=== PATIENT | male | born 1960 | race Caucasian/White ===

== ENCOUNTER 2017-09-04 08:46 | Emergency (ER) | payer BC ==
[~2017-09-04] VITALS: Ht 177.8 cm; Wt 108.9 kg
[~2017-09-04 08:46] MED LIST: IRBESARTAN; LEVO500T59 PO; METR500T PO; OMEP20TA63 PO; TEST2.5G5 TD
--- NOTE | 2017-09-04 09:07 | EKG ---
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
[2017-09-04] MEDS ORDERED: ONDANSETRON PF 4 MG/2 ML VIAL. IV ONE (09:30)
[2017-09-04 09:33] LABS: BASO % 0 % (0-3); EOS # 0.3 x10^3/uL (0.0-0.7); EOS % 5 % (0-3); HEMOGLOBIN 15.8 g/dL (13.0-17.5); LYMPH # 0.7 x10^3/uL (1.0-4.8); LYMPH % 12 % (24-48); MEAN CORPUSCULAR HEMOGLOBIN 29 pg (25-35); MEAN CORPUSCULAR HGB CONC 34 g/dL (31-37); MEAN CORPUSCULAR VOLUME 87 fL (79-100); MONO # 0.3 x10^3/uL (0.0-1.1); MONO % 6 % (0-9); NEUT # 4.3 x10^3uL (1.8-7.7); NEUT % 76 % (31-73); PLATELET COUNT 161 x10^3/uL (140-400); RED BLOOD COUNT 5.38 x10^6/uL (4.30-5.70); RED CELL DISTRIBUTION WIDTH 13.2 % (11.5-14.5); WHITE BLOOD COUNT 5.7 x10^3/uL (4.0-11.0)
--- NOTE | 2017-09-04 09:47 | RAD ---
EXAM: Chest, single view. HISTORY: Dizziness. COMPARISON: None. FINDINGS: A frontal view of the chest is obtained. There is no infiltrate, pleural effusion or pneumothorax. The heart is normal in size. There is a moderate hiatal hernia. IMPRESSION: No acute pulmonary finding. Electronically signed by: Elyse Stout MD (09/04/2017 9:44 AM) [facility]
[2017-09-04 09:56] LABS: ALBUMIN 4.1 g/dL (3.4-5.0); ALBUMIN/GLOBULIN RATIO 1.2 (1.0-1.7); CALCIUM 10.4 mg/dL (8.5-10.1); CREATININE 1.4 mg/dL (0.7-1.3); GFR 52.4; POTASSIUM 4.3 mmol/L (3.5-5.1); TOTAL BILIRUBIN 0.8 mg/dL (0.2-1.0); TOTAL PROTEIN 7.6 g/dL (6.4-8.2)
[2017-09-04 10:24] LABS: AMPHETAMINE/METHAMPHETAMINE NEG (NEG); BARBITURATES NEG (NEG); BENZODIAZEPINES NEG (NEG); CANNABINOIDS NEG (NEG); COCAINE NEG (NEG); METHADONE NEG (NEG); OPIATES NEG (NEG); PHENCYCLIDINE NEG (NEG)
[2017-09-04 10:25] LABS: BACTERIA,URINE FEW /HPF (0-FEW); BILIRUBIN,URINE NEG (NEG); CLARITY,URINE CLEAR; COLOR,URINE YELLOW; GLUCOSE,URINE NEG (NEG); NITRITE,URINE NEG (NEG); SQUAMOUS EPITHELIAL CELL,UR OCC /LPF; UROBILINOGEN,URINE 0.2 mg/dL (0.2 mg/dL)
[2017-09-04 10:26] LABS: HYALINE CASTS, URINE OCC /HPF
[2017-09-04] MEDS ORDERED: IV NORMAL SALINE 1,000ML 1,000 ML IV ONE (10:45)
--- NOTE | 2017-09-04 11:17 | RAD ---
Indication: Dizziness Technique: Noncontrast CT head was obtained. No comparison is available. One or more of the following individualized dose reduction techniques were utilized for this examination: 1. Automated exposure control 2. Adjustment of the mA and/or kV according to patient size 3. Use of iterative reconstruction technique Findings: The ventricles and sulci are within normal limits for age. There is no acute intracranial hemorrhage or extra-axial fluid collection. There is no mass effect or midline shift. Stanford-white differentiation is preserved. There are vascular calcifications. Right vertebral artery is dominant, there is tortuosity of the vertebrobasilar system. There is minimal ethmoid mucosal thickening. IMPRESSION: No acute intracranial findings. Electronically signed by: Chaz Nguyen MD (09/04/2017 9:43 AM) [facility] MTDD
--- NOTE | 2017-09-04 11:39 | PHYS DOC ---
Past History Past Medical History: GERD, Hypertension Past Surgical History: Cholecystectomy, Other Alcohol Use: None Drug Use: None Adult General Chief Complaint Chief Complaint: DIZZY/LIGHT HEADED HPI HPI 57-year-old male patient state he woke up at 5 AM and went to the bathroom without problem. Patient states he woke up at 6 AM and felt dizzy with mild shortness of breath without focal neuro deficit, headache, blurred vision, fever and chills, chest pain, nausea and vomiting. Patient's daughter checked his blood sugar that was 96 and his blood pressure was 150s without slurred speech. Patient states he waited for couple hours but didn't feel better and called his daughter to bring him to the hospital. Patient's daughter states he was diaphoretic without problem with his balance. 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 Review of Systems Review of Systems Constitutional: Denies fever or chills [] Eyes: Denies change in visual acuity, redness, or eye pain [] HENT: Denies nasal congestion or sore throat [] Respiratory: Denies cough or shortness of breath [] Cardiovascular: No additional information not addressed in HPI [] GI: Denies abdominal pain, nausea, vomiting, bloody stools or diarrhea [] : Denies dysuria or hematuria [] Musculoskeletal: Denies back pain or joint pain [] Integument: Denies rash or skin lesions [] Neurologic: Denies headache, focal weakness or sensory changes, reports dizziness [] Endocrine: Denies polyuria or polydipsia [] All other systems were reviewed and found to be within normal limits, except as documented in this note. Current Medications Current Medications Current Medications Medications (Trade) Dose Ordered Sig/Srinath Start Time Stop Time Status Last Admin Dose Admin Ondansetron HCl (Zofran) 4 mg 1X ONCE 09/04/17 09:30 09/04/17 09:31 DC 09/04/17 10:50 4 MG Sodium Chloride 1,000 ml @ 1,000 mls/hr 1X ONCE 09/04/17 10:45 09/04/17 11:44 09/04/17 10:55 1,000 MLS/HR Allergies Allergies Allergies Coded Allergies Type Severity Reaction Last Updated Verified No Known Drug Allergies 09/13/15 No Physical Exam Physical Exam Constitutional: Well developed, well nourished, no acute distress, non-toxic appearance. [] HENT: Normocephalic, atraumatic, bilateral external ears normal, oropharynx moist, no oral exudates, nose normal. [] Eyes: PERRLA, EOMI, conjunctiva normal, no discharge. [] Neck: Normal range of motion, no tenderness, supple, no stridor. [] Cardiovascular:Heart rate regular rhythm, no murmur [] Lungs & Thorax: Bilateral breath sounds clear to auscultation [] Abdomen: Bowel sounds normal, soft, no tenderness, no masses, no pulsatile masses. [] Skin: Warm, dry, no erythema, no rash. [] Back: No tenderness, no CVA tenderness. [] Extremities: No tenderness, no cyanosis, no clubbing, ROM intact, no edema. [] Neurologic: Alert and oriented X 3, normal motor function, normal sensory function, no focal deficits noted, NIH score of 0. [] Psychologic: Affect normal, judgement normal, mood normal. [] Current Patient Data Vital Signs Vital Signs Date Time Temp Pulse Resp B/P (MAP) Pulse Ox O2 Delivery O2 Flow Rate FiO2 09/04/17 09:30 98.6 69 18 96 Room Air Lab Results Laboratory Tests Test 09/04/17 09:22 09/04/17 10:00 White Blood Count 5.7 x10^3/uL (4.0-11.0) Red Blood Count 5.38 x10^6/uL (4.30-5.70) Hemoglobin 15.8 g/dL (13.0-17.5) Hematocrit 47.0 % (39.0-53.0) Mean Corpuscular Volume 87 fL (79-100) Mean Corpuscular Hemoglobin 29 pg (25-35) Mean Corpuscular Hemoglobin Concent 34 g/dL (31-37) Red Cell Distribution Width 13.2 % (11.5-14.5) Platelet Count 161 x10^3/uL (140-400) Neutrophils (%) (Auto) 76 % (31-73) H Lymphocytes (%) (Auto) 12 % (24-48) L Monocytes (%) (Auto) 6 % (0-9) Eosinophils (%) (Auto) 5 % (0-3) H Basophils (%) (Auto) 0 % (0-3) Neutrophils # (Auto) 4.3 x10^3uL (1.8-7.7) Lymphocytes # (Auto) 0.7 x10^3/uL (1.0-4.8) L Monocytes # (Auto) 0.3 x10^3/uL (0.0-1.1) Eosinophils # (Auto) 0.3 x10^3/uL (0.0-0.7) Basophils # (Auto) 0.0 x10^3/uL (0.0-0.2) Prothrombin Time 10.9 SEC (9.4-11.4) Prothrombin Time INR 1.1 (0.9-1.1) Sodium Level 136 mmol/L (136-145) Potassium Level 4.3 mmol/L (3.5-5.1) Chloride Level 103 mmol/L (98-107) Carbon Dioxide Level 28 mmol/L (21-32) Anion Gap 5 (6-14) L Blood Urea Nitrogen 17 mg/dL (8-26) Creatinine 1.4 mg/dL (0.7-1.3) H Estimated GFR (Cockcroft-Gault) 52.4 BUN/Creatinine Ratio 12 (6-20) Glucose Level 117 mg/dL (70-99) H Calcium Level 10.4 mg/dL (8.5-10.1) H Total Bilirubin 0.8 mg/dL (0.2-1.0) Aspartate Amino Transferase (AST) 22 U/L (15-37) Alanine Aminotransferase (ALT) 41 U/L (16-63) Alkaline Phosphatase 88 U/L (46-116) Creatine Kinase 128 U/L (39-308) Creatine Kinase MB (Mass) 3.3 ng/mL (0.0-3.6) Creatine Kinase MB Relative Index 2.6 % (0-4) Troponin I Quantitative < 0.017 ng/mL (0-0.055) Total Protein 7.6 g/dL (6.4-8.2) Albumin 4.1 g/dL (3.4-5.0) Albumin/Globulin Ratio 1.2 (1.0-1.7) Lipase 160 U/L (73-393) Urine Collection Type Unknown Urine Color Yellow Urine Clarity Clear Urine pH 6.5 Urine Specific [place] 1.020 Urine Protein Neg (NEG-TRACE) Urine Glucose (UA) Neg mg/dL (NEG) Urine Ketones (Stick) Neg mg/dL (NEG) Urine Blood Neg (NEG) Urine Nitrite Neg (NEG) Urine Bilirubin Neg (NEG) Urine Urobilinogen Dipstick 0.2 mg/dL (0.2 mg/dL) Urine Leukocyte Esterase Neg (NEG) Urine RBC 1-2 /HPF (0-2) Urine WBC 1-4 /HPF (0-4) Urine Squamous Epithelial Cells Occ /LPF Urine Bacteria Few /HPF (0-FEW) Urine Hyaline Casts Occ /HPF Urine Mucus Slight /LPF Urine Opiates Screen Neg (NEG) Urine Methadone Screen Neg (NEG) Urine Barbiturates Neg (NEG) Urine Phencyclidine Screen Neg (NEG) Urine Amphetamine/Methamphetamine Neg (NEG) Urine Benzodiazepines Screen Neg (NEG) Urine Cocaine Screen Neg (NEG) Urine Cannabinoids Screen Neg (NEG) Urine Ethyl Alcohol Neg (NEG) EKG EKG EKG interpreted by me. EKG at 0 859 showed normal sinus rhythm at rate of 73, poor R-wave progress in anteroseptal leads, no acute ST and T-wave abnormalities [] Radiology/Procedures Radiology/Procedures [[address] [address] IMAGING REPORT Signed PATIENT: CORINNE GODFREY ACCOUNT: [id number] : 1960 LOCATION: ER AGE: 57 SEX: M EXAM STATUS: REG ER ORD. PHYSICIAN: VI GRANADOS MD REASON: dizziness PROCEDURE: CHEST AP ONLY EXAM: Chest, single view. HISTORY: Dizziness. COMPARISON: None. FINDINGS: A frontal view of the chest is obtained. There is no infiltrate, pleural effusion or pneumothorax. The heart is normal in size. There is a moderate hiatal hernia. IMPRESSION: No acute pulmonary finding. Electronically signed by: Elyse Chau MD (09/04/2017 9:44 AM) [place] [id number] DICTATED AND SIGNED BY: ELYSE CHAU MD DATE: 09/04/17 0944 CC: VI GRANADOS MD; IVON ROPER MD ~ ][address] [address] IMAGING REPORT Signed PATIENT: CROINNE GODFREY ACCOUNT: [id number] : 1960 LOCATION: ER AGE: 57 SEX: M EXAM STATUS: REG ER ORD. PHYSICIAN: VI GRANADOS MD REASON: dizziness PROCEDURE: CT HEAD WO CONTRAST Indication: Dizziness Technique: Noncontrast CT head was obtained. No comparison is available. One or more of the following individualized dose reduction techniques were utilized for this examination: 1. Automated exposure control 2. Adjustment of the mA and/or kV according to patient size 3. Use of iterative reconstruction technique Findings: The ventricles and sulci are within normal limits for age. There is no acute intracranial hemorrhage or extra-axial fluid collection. There is no mass effect or midline shift. Stanford-white differentiation is preserved. There are vascular calcifications. Right vertebral artery is dominant, there is tortuosity of the vertebrobasilar system. There is minimal ethmoid mucosal thickening. IMPRESSION: No acute intracranial findings. Electronically signed by: Chaz Nguyen MD (09/04/2017 9:43 AM) [facility] DICTATED AND SIGNED BY: NON,STAFF DATE: 09/04/17 0943 CC: VI GRANADOS MD; IVON ROPER MD ~ Course & Med Decision Making Course & Med Decision Making Pertinent Labs and Imaging studies reviewed. (See chart for details) Evaluation of patient in ER showed 57-year-old male patient with complaining of dizziness and not feeling quite since this morning with diaphoresis on his way to the hospital. Patient had unremarkable physical exam and NIHS of 0. Patient had orthostatic hypertension develop of blood pressure from 160s to 110 from a supine to standing position. Patient treated with IV fluid and felt better. Labs was unremarkable except for calcium of 10.4. Patient states that his calcium is elevated and his physician performed a complete unremarkable workup for hypercalcemia. Patient treated with 1 L of normal saline and his dizziness resolved. CT of head was unremarkable. Patient instructed to drink more liquids. Patient felt better and wanted to go home and instructed to follow-up with his primary care physician Parviz Disclaimer Parviz Disclaimer This electronic medical record was generated, in whole or in part, using a voice recognition dictation system. Departure Departure: Impression: Primary Impression: Dehydration Additional Impressions: Orthostatic hypotension Dizziness Hypercalcemia Disposition: HOME, SELF-CARE (at 1136) Condition: IMPROVED Referrals: IVON ROPER MD (PCP) Patient Instructions: Dehydration, Adult, Dizziness, Hypercalcemia Additional Instructions: Drink plenty of liquids Follow-up with your primary care physician in 3-5 days Return to ER if not getting better Problem Qualifiers VI GRANADOS MD Sep 04, 2017 11:39
[2017-09-04 12:00] VITALS: BP 134/86
== END 2017-09-04 12:19 | disposition home or self-care (01) ==
LOC: ER 08:46
DX: E86.0 Dehydration (principal); I95.1 Orthostatic hypotension; E83.52 Hypercalcemia; R42 Dizziness and giddiness; K21.9 Gastro-esophageal reflux disease without esophagitis; I10 Essential (primary) hypertension
CPT/HCPCS: 36415; 70450; 71045; 80053; 80307; 81001; 82553; 83690; 84484; 85025; 85610; 93005; 96361; 96374; 99285; J2405; G0479; J7030